=== PATIENT | male | born 1945 | race Caucasian/White ===

== ENCOUNTER → 2018-04-17 08:41 | Outpatient (CLI) | payer MEDICARE, SELFPAY ==
--- NOTE | 2018-04-17 | DI.MRI.S_ITS ---
PROCEDURE: MR HEAD/BRAIN WO/W CON INDICATIONS: NEUROLOGIC ABNORMALITY TECHNIQUE: Noncontrast axial T1 spin echo, axial T2 fast spin echo, sagittal and axial FLAIR, coronal T2 fast spin echo, axial gradient echo, axial diffusion and ADC through the brain. After the administration of contrast, axial and coronal 3D VIBE or T1 spin echo with fat saturation through the brain. COMPARISON: [facility], MR, BRAIN WITHOUT CONTRAST, 04/01/2017, 13:26. FINDINGS: Image quality: Excellent. CSF Spaces: Basal cisterns are patent. No extra-axial fluid collections. Ventricles are normal in size and shape. Brain: No midline shift. No intracranial bleeds or masses. No abnormal intracranial enhancement. The brainstem appears normal. Diffusion-weighted images demonstrate no acute ischemic insults. No areas of encephalomalacia. A few, small, punctate foci of GRE weighted hypointensity are noted in the subcortical white matter cerebral hemispheres bilaterally. GRE hypointensities are nonspecific but likely represent remote petechial hemorrhage related to either hypertensive micro-bleed or amyloid angiopathy. A few scattered foci of increased T2 signal noted in the periventricular and subcortical white matter tracts compatible mild chronic microvascular ischemic changes. Small pineal cyst is stable. Normal intravascular flow voids are present. Skull and face: Calvarial marrow is normal in signal. Orbits appear normal. Sinuses: Moderate mucosal thickening noted in the right maxillary sinus. Scattered mucosal thickening noted in the ethmoid air cells bilaterally. Mild mucosal thickening noted in the left maxillary sinus, frontal sinuses and the sphenoid sinuses. The mastoids appear clear. IMPRESSION: 1. No acute intracranial disease process. 2. Mild, diffuse cerebral volume loss. 3. Mild periventricular and subcortical white matter chronic microvascular ischemic changes. 4. A few, scattered punctate GRE weighted hypointensities. Lesions are nonspecific, but typically are related to remote petechial hemorrhage secondary to either hypertensive microbleed or amyloid angiopathy. Please correlate with clinical data. 5. Pansinusitis. Dictated by: Maru Frazier MD, PhD on 04/17/2018 at 10:46 Approved by: Maru Frazier MD, PhD on 04/17/2018 at 10:54
== END ==
PROVIDERS: Family Provider Family Medicine; PCP Family Medicine; Visit Provider Family Medicine
DX: R29.818 Other symptoms and signs involving the nervous system (principal); J32.4 Chronic pansinusitis
CPT/HCPCS: 70553; A9579

== ENCOUNTER 2019-02-11 14:13 | Emergency (ER) | payer MEDICARE, SELFPAY ==
[2019-02-11 14:26] VITALS: BP 140/79; PULSE 81; RESP 20; TEMP 38; O2SAT 78
== END 2019-02-11 17:13 | disposition left against medical advice (07) ==
PROVIDERS: Emergency Provider Emergency Medicine; Family Provider Family Medicine; PCP Family Medicine
DX: R50.9 Fever, unspecified (principal); Z53.20 Procedure and treatment not carried out because of patient's decision for unspecified reasons
CPT/HCPCS: 87077; 87086; 99282

== ENCOUNTER → 2019-02-11 16:13 | Outpatient (CLI) | payer MEDICARE, SELFPAY | PROVIDERS: Family Provider Family Medicine; PCP Family Medicine; Visit Provider Urology | DX: R30.0 Dysuria (principal) | CPT/HCPCS: 87077; 87086 ==

== ENCOUNTER 2020-11-10 21:34 | Emergency (ER) | payer MEDICARE, SELFPAY ==
[2020-11-10 21:41] VITALS: PULSE 73; O2SAT 99
[2020-11-10 21:47] VITALS: BP 178/84; PULSE 75; RESP 17; TEMP 36.9; O2SAT 98; BMI 26.6
[2020-11-10 22:00] VITALS: BP 137/70; PULSE 67; O2SAT 96
[2020-11-10 22:30] VITALS: PULSE 63; O2SAT 98
--- NOTE | 2020-11-10 22:42 | ED.MALEGU ---
HPI - Male Genitourinary <Keith Bush, - Last Filed: 11/21/20 08:28> General Chief complaint: Urogenital-Male Stated complaint: Urinary cath complications. Time Seen by Provider: 11/10/20 21:40 Source: patient and EMS Mode of arrival: EMS Limitations: no limitations History of Present Illness HPI Narrative: 75-year-old male nonsmoker with history of prostate cancer presents by [facility] for evaluation of suprapubic pain and problem with urinary catheter. He went to his urologist today and had a cystoscopy, biopsy and Alexandre catheter placement. He made it home to the [place] at about 730 and started having trouble with his catheter. He has pain only and that was improved by medications given by the medics. He is free of other symptoms such as dizziness, weakness or lightheadedness. He denies any chest pain or shortness of breath. He denies any fever or chills. MD Complaint: other Onset (ago): hour(s) Duration: constant Location: abdomen Severity: moderate Relieving factors: none Exacerbating factors: none Context: recent surgery Associated symptoms: Reports denies other symptoms Related Data Home Medications Medication Instructions Recorded Confirmed [co q 10] #0 05/14/17 acetaminophen 325 mg PO Q4HP PRN #0 06/07/17 furosemide 20 mg PO QDAY #0 06/07/17 metoprolol tartrate 25 mg PO BID #0 06/07/17 potassium chloride #0 06/07/17 tramadol PRN PRN #0 06/07/17 warfarin [Coumadin] 3 mg PO QDAY #0 06/07/17 Previous Rx's Medication Instructions Recorded aspirin 81 mg PO QDAY #90 tab 03/05/17 atorvastatin [Lipitor] 40 mg PO HS #90 tab 03/05/17 lidocaine HCl 1 applic TOPICAL QID PRN #50 ml 11/11/20 phenazopyridine [Pyridium] 100 mg PO TID PRN #6 tab 11/11/20 tamsulosin [Flomax] 0.4 mg PO DAILY #14 cap 11/11/20 tramadol [Ultram] 50 mg PO Q6H PRN #10 tab 11/11/20 Allergies Allergy/AdvReac Type Severity Reaction Status Date / Time No Known Drug Allergies Allergy Verified 11/10/20 21:47 Review of Systems <Keith Bush DO - Last Filed: 11/21/20 08:28> Constitutional Constitutional: Denies chills, Denies fatigue, Denies fever(s), Denies frequent falls, Denies lethargy and Denies weakness Eyes Eyes: Denies change in vision, Denies eye discharge, Denies irritation and Denies loss of vision ENT Ears, Nose, Mouth, and Throat: Denies change in voice, Denies dizziness, Denies neck pain, Denies sore throat and Denies throat swelling Cardiovascular Cardiovascular: Denies chest pain, Denies irregular heart rhythm, Denies lightheadedness, Denies palpitations, Denies dyspnea, Denies dyspnea on exertion and Denies orthopnea Respiratory Respiratory: Denies cough, Denies dyspnea, Denies dyspnea on exertion and Denies wheezing Gastrointestinal Gastrointestinal: Denies abdominal pain, Denies change in bowel habits, Denies diarrhea, Denies nausea and Denies vomiting Genitourinary Genitourinary: Reports difficulty voiding Musculoskeletal Musculoskeletal: Denies neck pain and Denies numbness Integumentary/Breasts Skin/Breast: Denies pruritus, Denies erythema, Denies rash and Denies wounds Neurologic Neurologic: Denies behavioral changes, Denies confusion, Denies dizziness, Denies frequent falls, Denies loss of vision, Denies numbness and Denies weakness Psychiatric Psychiatric: Denies anxiety, Denies behavioral changes, Denies confusion, Denies depression, Denies homicidal ideation and Denies suicidal ideation Endocrine Endocrine: Denies fatigue, Denies flushing and Denies palpitations Hematologic/Lymphatic Hematologic/Lymphatic: Denies easy bruising Allergic/Immunologic Allergic/Immunologic: Denies urticaria, Denies throat swelling and Denies wheezing Patient History <Keith Bush DO - Last Filed: 11/21/20 08:28> Surgical History Status post rotator cuff repair Family History Father Cancer Social History Smoking Status: Never smoker Smoking Status: Never smoker alcohol intake frequency: 0-2 drinks per day Substance Use Type: marijuana Exam <Keith Bush DO - Last Filed: 11/21/20 08:28> Narrative Exam Narrative: GEN: AOx3 and in mild distress EYES: Pupils are equal, round, and reactive to light and accommodation. Extraoccular muscles are intact bilaterally. There is no subconjunctival hemorrhage or exudate. CHEST: Lungs are clear to auscultation bilaterally and free of wheezes, rales, or rhonchi. Heart rate is regular rhythm, there are no murmurs, clicks, rubs, or gallops. There is no chest wall tenderness. ABD: Abdomen is soft and mildly tender in the suprapubic region. There is no guarding or rebound. Bowel sounds are normal in all 4 quadrants. There is no mass or organomegaly. EXT: Full painless ROM of all extremities with no loss of sensation or strength. SKIN: Warm, pink, and dry. No erythema or rash Initial Vital Signs Initial Vital Signs: Vital Signs Pulse Rate 73 11/10/20 21:41 Pulse Oximetry 99 11/10/20 21:41 <Partha Neely DO - Last Filed: 11/11/20 18:31> Initial Vital Signs Initial Vital Signs: Vital Signs Pulse Rate 73 11/10/20 21:41 Pulse Oximetry 99 11/10/20 21:41 Course <Keith Bush DO - Last Filed: 11/21/20 08:28> Orders Ordered: Discontinued Medications Cyclobenzaprine HCl (Cyclobenzaprine 10 Mg Tablet) 10 mg PO NOW ONE Stop: 11/11/20 07:45 Last Admin: 11/11/20 07:52 Dose: 10 mg Documented by: KVNG Hydromorphone HCl (Hydromorphone 0.5 Mg Inj) 0.5 mg IV NOW ONE Stop: 11/11/20 07:02 Last Admin: 11/11/20 09:42 Dose: Not Given Documented by: KVNG Lidocaine HCl (Lidocaine 2% (Urojet) 5 Ml Gel) 5 ml TOP NOW ONE Stop: 11/10/20 22:40 Last Admin: 11/10/20 22:47 Dose: 5 ml Documented by: ANUSHKA Phenazopyridine HCl (Phenazopyridine 100 Mg Tablet) 100 mg PO NOW ONE Stop: 11/11/20 10:40 Last Admin: 11/11/20 10:48 Dose: 100 mg Documented by: KVNG Tamsulosin HCl (Tamsulosin 0.4 Mg Capsule) 0.4 mg PO NOW ONE Stop: 11/11/20 09:59 Last Admin: 11/11/20 10:13 Dose: 0.4 mg Documented by: KVNG Tramadol HCl (Tramadol 50 Mg Tablet) 50 mg PO NOW ONE Stop: 11/11/20 12:13 Last Admin: 11/11/20 12:16 Dose: 50 mg Documented by: KVNG Consultations Consultation #1: discussion with on-call urology from [facility]. He has reviewed the note, no difficulty with placement of alexandre, he recommends swapping out with 20Fr, flushing/irrigating and return precautions. Vital Signs Vital signs: Vital Signs - 8 hr 11/11/20 10:30 11/11/20 10:50 11/11/20 11:00 Temperature 98.4 F Pulse Rate 70 74 Blood Pressure 150/77 H Pulse Oximetry 95 96 <Partha Neely, - Last Filed: 11/11/20 18:31> Orders Ordered: Discontinued Medications Cyclobenzaprine HCl (Cyclobenzaprine 10 Mg Tablet) 10 mg PO NOW ONE Stop: 11/11/20 07:45 Last Admin: 11/11/20 07:52 Dose: 10 mg Documented by: KVNG Hydromorphone HCl (Hydromorphone 0.5 Mg Inj) 0.5 mg IV NOW ONE Stop: 11/11/20 07:02 Last Admin: 11/11/20 09:42 Dose: Not Given Documented by: KVNG Lidocaine HCl (Lidocaine 2% (Urojet) 5 Ml Gel) 5 ml TOP NOW ONE Stop: 11/10/20 22:40 Last Admin: 11/10/20 22:47 Dose: 5 ml Documented by: ANUSHKA Phenazopyridine HCl (Phenazopyridine 100 Mg Tablet) 100 mg PO NOW ONE Stop: 11/11/20 10:40 Last Admin: 11/11/20 10:48 Dose: 100 mg Documented by: KVNG Tamsulosin HCl (Tamsulosin 0.4 Mg Capsule) 0.4 mg PO NOW ONE Stop: 11/11/20 09:59 Last Admin: 11/11/20 10:13 Dose: 0.4 mg Documented by: KVNG Tramadol HCl (Tramadol 50 Mg Tablet) 50 mg PO NOW ONE Stop: 11/11/20 12:13 Last Admin: 11/11/20 12:16 Dose: 50 mg Documented by: KVNG Vital Signs Vital signs: Vital Signs - 8 hr 11/11/20 10:30 11/11/20 10:50 11/11/20 11:00 Temperature 98.4 F Pulse Rate 70 74 Blood Pressure 150/77 H Pulse Oximetry 95 96 MDM - Male Genitourinary <Keith Bush DO - Last Filed: 11/21/20 08:28> Lab Data Result diagrams: 11/11/20 07:39 11/11/20 07:39 Labs: Lab Results 11/11/20 11/11/20 Range/Units 07:39 07:39 WBC 7.5 (4.5-11.0) X10^3/uL RBC 4.24 L (4.5-5.9) X10^6/uL Hgb 13.4 L (13.5-17.5) g/dL Hct 39.2 L (41-53) % MCV 92.4 (80-100) fL MCH 31.6 (26-34) PG MCHC 34.2 (30-36) % RDW 13.8 (11.6-14.8) % Plt Count 296 (150-400) X10^3/uL Neut % (Auto) 66.7 (50-75) % Lymph % (Auto) 22.7 L (25-40) % Dickey % (Auto) 7.9 (3-14) % Eos % (Auto) 1.6 L (2-4) % Baso % (Auto) 1.1 (0-2) % Neut # (Auto) 5000 (1903-5489) /uL Lymph # (Auto) 1700 (8125-5787) /uL Dickey # (Auto) 600 (0-900) /uL Eos # (Auto) 100 (0-450) /uL Baso # (Auto) 100 (0-100) /uL Sodium 136 L (137-145) mmol/L Potassium 4.0 (3.4-5.1) mmol/L Chloride 105 (98-107) mmol/L Carbon Dioxide 27 (22-32) mmol/L BUN 17 (9-20) mg/dL Creatinine 0.92 (0.66-1.25) mg/dL Estimated GFR > 60.0 (>60) mL/min BUN/Creatinine Ratio 18.5 (6-22) Glucose 99 (80-110) mg/dL Calcium 9.2 (8.4-10.2) mg/dL <Partah Neely DO - Last Filed: 11/11/20 18:31> Lab Data Attestation: I reviewed the patient's lab results. Labs: Lab Results 11/11/20 11/11/20 Range/Units 07:39 07:39 WBC 7.5 (4.5-11.0) X10^3/uL RBC 4.24 L (4.5-5.9) X10^6/uL Hgb 13.4 L (13.5-17.5) g/dL Hct 39.2 L (41-53) % MCV 92.4 (80-100) fL MCH 31.6 (26-34) PG MCHC 34.2 (30-36) % RDW 13.8 (11.6-14.8) % Plt Count 296 (150-400) X10^3/uL Neut % (Auto) 66.7 (50-75) % Lymph % (Auto) 22.7 L (25-40) % Dickey % (Auto) 7.9 (3-14) % Eos % (Auto) 1.6 L (2-4) % Baso % (Auto) 1.1 (0-2) % Neut # (Auto) 5000 (2209-4648) /uL Lymph # (Auto) 1700 (3854-8659) /uL Dickey # (Auto) 600 (0-900) /uL Eos # (Auto) 100 (0-450) /uL Baso # (Auto) 100 (0-100) /uL Sodium 136 L (137-145) mmol/L Potassium 4.0 (3.4-5.1) mmol/L Chloride 105 (98-107) mmol/L Carbon Dioxide 27 (22-32) mmol/L BUN 17 (9-20) mg/dL Creatinine 0.92 (0.66-1.25) mg/dL Estimated GFR > 60.0 (>60) mL/min BUN/Creatinine Ratio 18.5 (6-22) Glucose 99 (80-110) mg/dL Calcium 9.2 (8.4-10.2) mg/dL MDM Narrative Medical decision making narrative: Dr neely: I received turned over from Dr. Bush and reviewed the patient's history and physical. His labs resulted and are unremarkable. He continues to have pain could drainage from around the Alexandre. A 20 Georgian replace the Alexandre that he came in with per recommendation by Urology that was on-call overnight. I did discuss the case with the patient's urologist who did the biopsy. The urologist recommended leaving the Alexandre in place. Recommended the continued post operative plan with follow-up of next week. I discussed this with the patient. He was very reluctant to go home given the discomfort that he was in. I tried to provide reassurance. He was given Flomax and also peridium to try to help with his bladder issues. After discharge he continue to have discomfort. He was given pain medication here prior to leaving. I even offered to remove the Alexandre given the discomfort that he was having however we did discuss the risks of this to include urinary retention and continued issues necessitating the need to replace the Alexandre at a later time. He expressed understanding this and would still like to leave the Alexandre in place. He was given return precautions and follow-up instructions. He expressed understanding and agreement Discharge Plan Departure Patient Disposition: Home Clinical Impression: Alexandre catheter problem Qualifiers: Encounter type: initial encounter Qualified Code(s): T83.9XXA - Unspecified complication of genitourinary prosthetic device, implant and graft, initial encounter Instructions: How to Care for Your Alexandre Catheter -- Male Activity Restrictions/Additional Instructions: *You have been diagnosed with [Alexandre catheter problem, resolved with swapping out catheter] *What to do: * continue to take medications as directed *Follow up with your urologist in 2-3 days, call for an appointment. Let them know you were seen in the Emergency Department and that we ask that you be seen in follow up *Return to ER if you should have any new, worsening or concerning symptoms A prescription for medications electronically transmitted to [facility]. Take them as directed and as needed. Be sure to increase your fluid intake so that you are urinating regularly. Keep all of your schedule medical appointments. Prescriptions: New tramadol [Ultram] 50 mg tablet 50 mg PO Q6H PRN (Reason: pain) Qty: 10 RF: 0 lidocaine HCl 2 % jelly 1 applic topical QID PRN (Reason: pain) Qty: 50 RF: 0 tamsulosin [Flomax] 0.4 mg capsule 0.4 mg PO DAILY Qty: 14 RF: 0 phenazopyridine [Pyridium] 100 mg tablet 100 mg PO TID PRN (Reason: pain) Qty: 6 RF: 0 No Action atorvastatin [Lipitor] 40 MG tablet 40 mg PO HS Qty: 90 RF: 1 aspirin 81 MG tablet,delayed release (DR/EC) 81 mg PO QDAY Qty: 90 RF: 1 [co q 10] Qty: 0 RF: 0 metoprolol tartrate 25 MG tablet 25 mg PO BID Qty: 0 RF: 0 potassium chloride 20 MEQ tablet,ER particles/crystals Qty: 0 RF: 0 furosemide 20 MG tablet 20 mg PO QDAY Qty: 0 RF: 0 acetaminophen 325 MG tablet 325 mg PO Q4HP PRNQty: 0 RF: 0 warfarin [Coumadin] 3 MG tablet 3 mg PO QDAY Qty: 0 RF: 0 tramadol 50 MG tablet PRN PRNQty: 0 RF: 0 Referrals: Jed Quezada MD [Primary Care Provider] -
[2020-11-10] MEDS: LIDOCAINE 2% (UROJET) 5 ML GEL TOP (22:47)
[2020-11-10 23:00] VITALS: PULSE 83; O2SAT 100
[2020-11-10 23:30] VITALS: PULSE 60; O2SAT 95
--- NOTE | 2020-11-10 23:39 | PC.NURSE ---
After placement of catheter, flushed with 240ml of Normal saline. empty alexandre with 375. After flushing the liquid in the catheter, the output had a light pink tinge.
[2020-11-11] VITALS (27 sets, daily range): BP systolic 134–150; BP diastolic 71–87; PULSE 63–75; RESP 16; TEMP 36.6–36.9; O2SAT 91–98
--- NOTE | 2020-11-11 03:56 | PC.NURSE ---
Pt complaining of having the feeling of needing to urinate. States tried to bear down but caused increase pain. Flushed cath with 120 mls of normal saline and alexandre draining, during this process patient, urinated around alexandre. Provider aware.
[2020-11-11 07:49] LABS: Add Manual Diff / Slide Review NO; Basophils Absolute Auto 100 /uL (0-100); Basophils Percent Auto 1.1 % (0-2); Eosinophils Absolute Auto 100 /uL (0-450); Eosinophils Percent Auto 1.6 % (2-4); Hematocrit 39.2 % (41-53); Hemoglobin 13.4 g/dL (13.5-17.5); Lymphocytes Absolute Auto 1700 /uL (1100-4500); Lymphocytes Percent Auto 22.7 % (25-40); Mean Corpuscular HGB Conc 34.2 % (30-36); Mean Corpuscular Hemoglobin 31.6 PG (26-34); Mean Corpuscular Volume 92.4 fL (80-100); Monocytes Absolute Auto 600 /uL (0-900); Monocytes Percent Auto 7.9 % (3-14); Neutrophils Absolute Auto 5000 /uL (1500-7000); Neutrophils Percent Auto 66.7 % (50-75); Platelet Count 296 X10^3/uL (150-400); Red Blood Cell Count 4.24 X10^6/uL (4.5-5.9); Red Cell Distribution Width 13.8 % (11.6-14.8); White Blood Cell Count 7.5 X10^3/uL (4.5-11.0)
[2020-11-11] MEDS: CYCLOBENZAPRINE 10 MG TABLET PO (07:52)
[2020-11-11 08:02] LABS: BUN Creatinine Ratio 18.5 (6-22); Blood Urea Nitrogen 17 mg/dL (9-20); Calcium 9.2 mg/dL (8.4-10.2); Carbon Dioxide 27 mmol/L (22-32); Chloride 105 mmol/L (98-107); Estimated Glomerular Filt Rate > 60.0 mL/min (>60); Glucose 99 mg/dL (80-110); HEMOLYSIS < 15 (0-50); Sodium 136 mmol/L (137-145)
[2020-11-11] MEDS: TAMSULOSIN 0.4 MG CAPSULE PO (10:13)
[2020-11-11] MEDS: PHENAZOPYRIDINE 100 MG TABLET PO (10:48)
--- NOTE | 2020-11-11 11:51 | PC.NURSE ---
Leg Bag applied to patient, teaching given on proper care of home catheter with clean practice to switch from leg bag to large urinary catheter bag at night. Patient given cap for bag.
[2020-11-11] MEDS: TRAMADOL 50 MG TABLET PO (12:16)
== END 2020-11-11 11:54 | disposition home or self-care (01) ==
PROVIDERS: Emergency Medicine; Emergency Provider Emergency Medicine; Family Provider Family Medicine; PCP Family Medicine
DX: T83.9XXA Unspecified complication of genitourinary prosthetic device, implant and graft, initial encounter (principal); R10.9 Unspecified abdominal pain
CPT/HCPCS: 51700; 51705; 80048; 85025; 99283; 99284